=== PATIENT | male | born 1950 | race Caucasian/White ===

== ENCOUNTER 2020-01-01 08:53 | Emergency (ER) | payer OTHER, BC, SELFPAY ==
[~2020-01-01] VITALS: Ht 167.6 cm; Wt 76.7 kg
--- NOTE | 2020-01-01 08:53 | NUR ---
PT WAS SEEN DRIVING UP TO THE ER AND RN IN THE TENT OUTSIDE ASSISTED PT AND BROUGHT HIM IN TO THE TENT TRIAGE. PT IS COUGHING AND ANXIOUS. PT STATED HE HAS HX OF COPD AND CHRONIC BRONCHITIS. PT IS GIVEN O2 AND VS CHECK. RA O2 SAT WAS 88%. NC O2 GIVEN AT 2 L. O2 CAME UP TO 92%. PT IS ALERT AND ORIENTED , BUT OBVIOUSLY ANXIOUS WITH DRY COUGH. PT HAS INHALER WITH HIM. PT HAS HX OF HTN WELL. PT IS THEN BROUGHT TO BED 6 AND PLACED IN GOWN. AWARE.
[2020-01-01 08:56] VITALS: BP_SYST 167
--- NOTE | 2020-01-01 09:00 | NUR ---
PT PLACED IN BED 6, REPORT GIVEN TO JOSE CARLOS.
[2020-01-01] MEDS ORDERED: LEVOFLOXACIN 500 MG/D5W 100 ML IV ONE (09:30)
[2020-01-01] MEDS ORDERED: ALBUTEROL SULFATE 0.083% 2.5 MG/3 ML VIAL.NEB INH ONE ×2 (09:30→11:45)
--- NOTE | 2020-01-01 09:42 | NUR ---
Patient arrived via POV, AAOx4, and ambulatory with steady gait. Patient c/c of cough and shortness of breath x 3-4 days. Patient has history of COPD, chronic bronchitis, and HTN. Patient is 88-91% on room air. Patient is calm and cooperative. Will continue to follow up and monitor.
--- NOTE | 2020-01-01 09:45 | NUR ---
ER at bedside examining patient.
[2020-01-01 10:00] LABS: BASOPHILS # (AUTO) 0.1 K/uL (0.0-0.2); BASOPHILS % (AUTO) 0.7 % (0.0-2.0); EOSINOPHILS # (AUTO) 0.8 K/uL (0.0-0.4); EOSINOPHILS % (AUTO) 10.8 % (0.0-4.0); HEMATOCRIT 50.5 % (36-54); HEMOGLOBIN 16.9 g/dL (14.0-18.0); LYMPHOCYTES # (AUTO) 1.4 K/uL (1.0-5.5); LYMPHOCYTES % (AUTO) 19.5 % (20.5-51.5); MEAN CORPUSCULAR HEMOGLOBIN 33 pg (27-31); MEAN CORPUSCULAR HGB CONC 33 % (32-36); MEAN CORPUSCULAR VOLUME 100 fL (79.0-98.0); MONOCYTES # (AUTO) 0.6 K/uL (0.0-1.0); MONOCYTES % (AUTO) 7.8 % (1.7-9.3); NEUTROPHILS # (AUTO) 4.4 K/uL (1.8-7.7); NEUTROPHILS % (AUTO) 61.2 % (40.0-70.0); PLATELET COUNT (AUTO) 258 K/uL (130-430); RED BLOOD CELL COUNT(AUTO) 5.07 MIL/uL (4.2-6.2); WHITE BLOOD COUNT (AUTO) 7.2 K/uL (4.8-10.8)
[2020-01-01 10:06] LABS: CALCIUM 8.3 mg/dL (8.4-11.0); CREATININE 1.03 mg/dL (0.55-1.30); POTASSIUM 4.3 mmol/L (3.5-5.1)
[2020-01-01 10:07] LABS: PROTHROMBIN TIME 9.9 SECS (9.5-12.5)
[2020-01-01 10:12] LABS: ALBUMIN 3.2 g/dL (3.4-4.8); TOTAL BILIRUBIN 0.4 mg/dL (0.0-1.0)
[2020-01-01 10:40] LABS: BILIRUBIN,URINE NEGATIVE (NEGATIVE); BLOOD, URINE NEGATIVE (NEGATIVE); CLARITY/URINE CLEAR (CLEAR); COLOR,URINE YELLOW (YELLOW); GLUCOSE,URINE NEGATIVE (NEGATIVE); KETONES,URINE NEGATIVE (NEGATIVE); LEUKOCYTE ESTERASE ,URINE NEGATIVE (NEGATIVE); NITRITE, URINE NEGATIVE (NEGATIVE); PH,URINE 6.5 (5.0-8.0); PROTEIN URINE 1+ (NEGATIVE)
[2020-01-01 11:33] LABS: RBC,URINE 0-3 /HPF (0-3)
[2020-01-01 11:34] LABS: BACTERIA,URINE MODERATE /HPF (None Seen)
[2020-01-01 11:35] LABS: MUCUS,URINE 1+ /LPF (None Seen)
[2020-01-01 12:05] VITALS: BP_SYST 121
--- NOTE | 2020-01-01 12:15 | NUR ---
Patient given written and verbal discharge instructions and verbalizes understanding. ER MD discussed with patient the results and treatment provided. Patient in stable condition. ID arm band removed. Rx of Azythromax given. Patient educated on pain management and to follow up with PMD. Pain Scale 2/10 tolerable for patient . Opportunity for questions provided and answered. Medication side effect fact sheet provided.
== END 2020-01-01 12:00 | disposition home or self-care (01) ==
LOC: SED 08:53 → EEVIPCON 08:53 → SED 12:00
DX: J40 Bronchitis, not specified as acute or chronic (principal); J44.9 Chronic obstructive pulmonary disease, unspecified; Z20.828 Contact with and (suspected) exposure to other viral communicable diseases
CPT/HCPCS: 36415; 36600; 71045; 80053; 81000; 82803; 83605; 83880; 84484; 85025; 85610; 86710; 87040; 87086; 93005; 94640; 96365; 99285; J1956; J7613; U0002

== ENCOUNTER 2023-12-16 10:39 | Emergency (ER) | payer OTHER, BC ==
[~2023-12-16] VITALS: Ht 167.6 cm; Wt 68.0 kg
[~2023-12-16 10:39] MED LIST: ALBMDI INH; ASPI-1393 PO; ATOR20TA64 PO; LEVO-62 PO; LOSA25TA18 PO; METH-776 PO; OSEL75CA PO; PARO25TA PO
[2023-12-16 10:45] VITALS: BP_SYST 183; PULSE 86; RESP 25; TEMP 99.1; O2SAT 85
[2023-12-16] MEDS: methylPREDNISolone SOD SUCC/PF 62.5 MG/ML VIAL IVP ONE (10:50)
[2023-12-16] MEDS: hydrALAZINE HCL 20 MG/ML VIAL IVP ONE (10:53)
[2023-12-16 10:57] LABS: BASOPHILS # (AUTO) 0.1 K/uL (0.0-0.2); BASOPHILS % (AUTO) 0.7 % (0.0-2.0); EOSINOPHILS # (AUTO) 0.4 K/uL (0.0-0.4); EOSINOPHILS % (AUTO) 4.3 % (0.0-4.0); HEMATOCRIT 47.5 % (36-54); HEMOGLOBIN 16.4 g/dL (14.0-18.0); LYMPHOCYTES # (AUTO) 2.1 K/uL (1.0-5.5); LYMPHOCYTES % (AUTO) 23.9 % (20.5-51.5); MEAN CORPUSCULAR HEMOGLOBIN 33 pg (27-31); MEAN CORPUSCULAR HGB CONC 35 % (32-36); MEAN CORPUSCULAR VOLUME 94 fL (79.0-98.0); MONOCYTES # (AUTO) 0.7 K/uL (0.0-1.0); MONOCYTES % (AUTO) 8.1 % (1.7-9.3); NEUTROPHILS # (AUTO) 5.6 K/uL (1.8-7.7); PLATELET COUNT (AUTO) 321 K/uL (130-430); RED BLOOD CELL COUNT(AUTO) 5.04 MIL/uL (4.2-6.2); RED CELL DISTRIBUTION WIDTH 14.2 % (9.0-15.0)
[2023-12-16 11:12] LABS: ANION GAP 6 (5-15); CALCIUM 8.6 mg/dL (8.4-11.0); CARBON DIOXIDE 30 mmol/L (23-29); CHLORIDE 106 mmol/L (98-107); CREATININE 1.13 mg/dL (0.55-1.30); GLUCOSE 102 mg/dL (74-106); POTASSIUM 3.9 mmol/L (3.5-5.1); SODIUM SERUM 142 mmol/L (136-145); UREA NITROGEN, BLOOD 17 mg/dL (8-21)
[2023-12-16 11:18] LABS: ALANINE AMINOTRANSFERASE 19 U/L (12-78); ALBUMIN 3.4 g/dL (3.4-4.8); ASPARTATE AMINOTRANSFERASE 19 U/L (10-37); BILIRUBIN,DIRECT 0.1 mg/dL (0.0-0.3); TOTAL BILIRUBIN 0.5 mg/dL (0.0-1.0); TOTAL PROTEIN, SERUM 7.4 g/dL (6.4-8.3)
[2023-12-16] MEDS: IPRATROPIUM/ALBUTEROL SULFATE 3 ML AMPUL.NEB (DUONEB) INH ONE (11:21)
[2023-12-16 11:26] LABS: BLOOD GAS BASE EXCESS -1.2 mmol/L (-3.0-3.0); BLOOD GAS HCO3 23.6 mmol/L (21.0-27.0); BLOOD GAS PCO2 39.9 mmHg (32.0-45.0); BLOOD GAS PH 7.389 (7.350-7.450); BLOOD GAS PO2 82.1 mmHg (75.0-100.0)
[2023-12-16 11:32] LABS: ALLEN'S TEST POSITIVE (P)
[2023-12-16] MEDS ORDERED: PRED50TA PO (12:11)
[2023-12-16 12:20] VITALS: BP_SYST 147; PULSE 89; RESP 19; TEMP 99.1; O2SAT 97
== END 2023-12-16 12:19 | disposition left against medical advice (07) ==
LOC: SED 10:39
DX: J44.1 Chronic obstructive pulmonary disease with (acute) exacerbation (principal); R06.02 Shortness of breath; R05.9 Cough, unspecified; I10 Essential (primary) hypertension; Z79.899 Other long term (current) drug therapy
CPT/HCPCS: 99291; 96374; 96375; 80076; 80048; 83880; 85025; 84484; 36415; 93005; 71045; 94640; 36600; 82803; J0360

== ENCOUNTER 2023-12-19 08:00 | Emergency (ER) | payer OTHER, BC ==
[~2023-12-19] VITALS: Ht 167.6 cm; Wt 70.3 kg
[~2023-12-19 08:00] MED LIST changes: +PRED50TA PO
[2023-12-19 08:08] VITALS: BP_SYST 131; PULSE 92; RESP 22; TEMP 97; O2SAT 94
[2023-12-19 08:26] LABS: BASOPHILS % (AUTO) 0.1 % (0.0-2.0); HEMATOCRIT 45.5 % (36-54); HEMOGLOBIN 15.3 g/dL (14.0-18.0); LYMPHOCYTES # (AUTO) 1.1 K/uL (1.0-5.5); LYMPHOCYTES % (AUTO) 8.7 % (20.5-51.5); MEAN CORPUSCULAR HEMOGLOBIN 32 pg (27-31); MEAN CORPUSCULAR HGB CONC 34 % (32-36); MEAN CORPUSCULAR VOLUME 94 fL (79.0-98.0); MONOCYTES # (AUTO) 0.3 K/uL (0.0-1.0); MONOCYTES % (AUTO) 2.8 % (1.7-9.3); NEUTROPHILS # (AUTO) 10.7 K/uL (1.8-7.7); NEUTROPHILS % (AUTO) 88.4 % (40.0-70.0); PLATELET COUNT (AUTO) 300 K/uL (130-430); RED BLOOD CELL COUNT(AUTO) 4.83 MIL/uL (4.2-6.2); RED CELL DISTRIBUTION WIDTH 14.1 % (9.0-15.0); WHITE BLOOD COUNT (AUTO) 12.1 K/uL (4.8-10.8)
[2023-12-19] MEDS: methylPREDNISolone SOD SUCC/PF 62.5 MG/ML VIAL IVP ONE (08:31)
[2023-12-19 08:38] LABS: ANION GAP 12 (5-15); CALCIUM 8.6 mg/dL (8.4-11.0); CARBON DIOXIDE 25 mmol/L (23-29); CHLORIDE 103 mmol/L (98-107); CREATININE 1.08 mg/dL (0.55-1.30); GLUCOSE 127 mg/dL (74-106); SODIUM SERUM 140 mmol/L (136-145); UREA NITROGEN, BLOOD 19 mg/dL (8-21)
[2023-12-19] MEDS: IPRATROPIUM/ALBUTEROL SULFATE 3 ML AMPUL.NEB (DUONEB) INH ONE (08:39)
[2023-12-19] MEDS ORDERED: PRED20TA PO (09:41)
[2023-12-19 09:50] VITALS: BP_SYST 125; PULSE 94; RESP 18; TEMP 97.9; O2SAT 96
== END 2023-12-19 09:15 | disposition home or self-care (01) ==
LOC: SED 08:00
DX: J44.1 Chronic obstructive pulmonary disease with (acute) exacerbation (principal); F17.210 Nicotine dependence, cigarettes, uncomplicated; I10 Essential (primary) hypertension; Z71.6 Tobacco abuse counseling
CPT/HCPCS: 36415; 71045; 80048; 83880; 84484; 85025; 85610; 85730; 93005; 94640; 94760; 96374; 99285; J2930

== ENCOUNTER 2024-03-03 04:29 | Inpatient (IN) | payer OTHER, BC ==
[2024-03-03] VITALS (9 sets, daily range): BP systolic 140–152; PULSE 74–116; RESP 16–28; TEMP 97.6–97.7; O2SAT 84–99
[~2024-03-03] VITALS: Ht 167.6 cm; Wt 68.6 kg
[~2024-03-03 04:29] MED LIST changes: +PRED20TA PO
[2024-03-03] MEDS ORDERED: ALBUTEROL SULFATE 0.083% 2.5 MG/3 ML VIAL.NEB INH ONE (04:38)
[2024-03-03] MEDS: IPRATROPIUM BROM 0.5 MG/2.5 ML VIAL.NEB (ATROVENT) INH ONE (04:45)
[2024-03-03] MEDS: ALBUTEROL SULFATE 0.083% 2.5 MG/3 ML VIAL.NEB INH ONE (04:45)
[2024-03-03] MEDS: NACL 0.9% 1,000 ML IV ONE (05:27)
[2024-03-03 05:49] LABS: BILIRUBIN,URINE NEGATIVE (NEGATIVE); BLOOD, URINE 1+ (NEGATIVE); COLOR,URINE YELLOW (YELLOW); GLUCOSE,URINE NEGATIVE (NEGATIVE); KETONES,URINE NEGATIVE (NEGATIVE); LEUKOCYTE ESTERASE ,URINE TRACE (NEGATIVE); NITRITE, URINE NEGATIVE (NEGATIVE); PROTEIN URINE 2+ (NEGATIVE); UROBILINOGEN,URINE 0.2 (0.2-1.0)
[2024-03-03] MEDS: methylPREDNISolone SOD SUCC/PF 62.5 MG/ML VIAL IVP ONE (06:00)
[2024-03-03 06:10] LABS: CLARITY/URINE HAZY (CLEAR)
[2024-03-03 06:11] LABS: BACTERIA,URINE None Seen /HPF (None Seen)
[2024-03-03 06:11] LABS: BASOPHILS % (AUTO) 0.3 % (0.0-2.0); EOSINOPHILS # (AUTO) 0.3 K/uL (0.0-0.4); EOSINOPHILS % (AUTO) 2.2 % (0.0-4.0); HEMATOCRIT 41.9 % (36-54); HEMOGLOBIN 14.2 g/dL (14.0-18.0); LYMPHOCYTES # (AUTO) 1.2 K/uL (1.0-5.5); LYMPHOCYTES % (AUTO) 8.3 % (20.5-51.5); MEAN CORPUSCULAR HEMOGLOBIN 32 pg (27-31); MEAN CORPUSCULAR HGB CONC 34 % (32-36); MEAN CORPUSCULAR VOLUME 94 fL (79.0-98.0); MONOCYTES % (AUTO) 7.1 % (1.7-9.3); NEUTROPHILS # (AUTO) 11.6 K/uL (1.8-7.7); NEUTROPHILS % (AUTO) 82.1 % (40.0-70.0); PLATELET COUNT (AUTO) 282 K/uL (130-430); RED BLOOD CELL COUNT(AUTO) 4.43 MIL/uL (4.2-6.2); RED CELL DISTRIBUTION WIDTH 14.8 % (9.0-15.0); WHITE BLOOD COUNT (AUTO) 14.1 K/uL (4.8-10.8)
[2024-03-03 06:43] LABS: ALANINE AMINOTRANSFERASE 30 U/L (12-78); ALBUMIN 2.7 g/dL (3.4-4.8); ANION GAP 7 (5-15); ASPARTATE AMINOTRANSFERASE 31 U/L (10-37); BILIRUBIN,DIRECT 0.1 mg/dL (0.0-0.3); CALCIUM 7.9 mg/dL (8.4-11.0); CARBON DIOXIDE 29 mmol/L (23-29); CHLORIDE 106 mmol/L (98-107); CREATININE 1.01 mg/dL (0.55-1.30); GLUCOSE 131 mg/dL (74-106); POTASSIUM 3.7 mmol/L (3.5-5.1); SODIUM SERUM 142 mmol/L (136-145); TOTAL BILIRUBIN 0.2 mg/dL (0.0-1.0); TOTAL PROTEIN, SERUM 5.9 g/dL (6.4-8.3); UREA NITROGEN, BLOOD 13 mg/dL (8-21)
[2024-03-03] MEDS: METHYLPREDNISOLONE SOD SUCC 40 MG/ML VIAL IVP SCH (08:28)
[2024-03-03] MEDS ORDERED: [UNRECOGNIZED DRUG - REMARK] PO (08:40)
[2024-03-03] MEDS ORDERED: AZITHROMYCIN 500 MG/VIAL (ZITHROMAX) IV ONE (08:56)
[2024-03-03] MEDS: AZITHROMYCIN 500 MG in NS 250 ML IV ONE (09:02)
[2024-03-03] MEDS: NICOTINE 21 MG/24 HR PATCH.TD24 TD SCH (09:02)
[2024-03-03] MEDS: IPRATROPIUM/ALBUTEROL SULFATE 3 ML AMPUL.NEB (DUONEB) INH SCH (11:12)
[2024-03-04] VITALS: BP_SYST 138; PULSE 72; RESP 16; TEMP 97.2; O2SAT 96
[2024-03-04 07:21] VITALS: O2SAT 98
[2024-03-04 08:00] VITALS: BP_SYST 124; PULSE 76; RESP 18; TEMP 97.4; O2SAT 93
[2024-03-04] MEDS: AZITHROMYCIN 500 MG in NS 250 ML IV SCH (09:47)
[2024-03-04 12:21] VITALS: BP_SYST 129; PULSE 75; RESP 18; TEMP 97.8; O2SAT 95
[2024-03-04 15:47] VITALS: BP_SYST 124; PULSE 76; RESP 18; TEMP 97.4; O2SAT 94
[2024-03-04] MEDS ORDERED: AZIT500T PO (18:37)
[2024-03-04] MEDS ORDERED: METH-776 PO (18:37)
== END 2024-03-04 17:40 | disposition home or self-care (01) | DRG 189 ==
LOC: SED 04:29 → STU 07:35 → SMU 03-04 16:39
PROVIDERS: ADMIT Preventive Medicine Preventive Medicine/Occupational Environmental Medicine; ATTEND Preventive Medicine Preventive Medicine/Occupational Environmental Medicine
DX: J96.01 Acute respiratory failure with hypoxia (principal); E43 Unspecified severe protein-calorie malnutrition; J44.1 Chronic obstructive pulmonary disease with (acute) exacerbation; I10 Essential (primary) hypertension; R73.9 Hyperglycemia, unspecified; D72.829 Elevated white blood cell count, unspecified; E83.51 Hypocalcemia; E88.09 Other disorders of plasma-protein metabolism, not elsewhere classified; Z68.24 Body mass index [BMI] 24.0-24.9, adult; Z79.899 Other long term (current) drug therapy; Z72.0 Tobacco use
CPT/HCPCS: 36600; 71045; 80048; 80076; 81000; 81001; 81015; 82803; 84484; 85025; 87086; 93005; 94070; 94640; 94760; 99285; G0378; J0456; J1030; J2930; J7050

== ENCOUNTER 2024-07-08 01:25 | Inpatient (IN) | payer OTHER, BC ==
[~2024-07-08] VITALS: Ht 167.6 cm; Wt 63.0 kg
[2024-07-08] VITALS (8 sets, daily range): BP systolic 99–125; PULSE 55–87; RESP 15–24; TEMP 97.9–98.1; O2SAT 93–100
[~2024-07-08 01:25] MED LIST changes: +AZIT500T PO; -LEVO-62 PO; -PRED20TA PO; -PRED50TA PO; +[UNRECOGNIZED DRUG - REMARK] PO
[2024-07-08] MEDS: methylPREDNISolone SOD SUCC/PF 62.5 MG/ML VIAL IVP ONE (01:56)
[2024-07-08] MEDS: MAGNESIUM SULFATE 50 ML IV ONE (01:56)
[2024-07-08 02:25] LABS: BLOOD GAS PH 7.376 (7.350-7.450)
[2024-07-08 02:26] LABS: ABG O2 SAT% ESTIMATE 93.5 % (94.0-98.0); ALLEN'S TEST POSITIVE (P); BLOOD GAS BASE EXCESS 3.2 mmol/L (-2.0-3.0); BLOOD GAS HCO3 29.5 mmol/L (21.0-28.0); BLOOD GAS PCO2 51.4 mmHg (35.0-48.0); BLOOD GAS PO2 70.1 mmHg (83.0-108.0)
[2024-07-08 02:27] LABS: FRACTIONATED INSPIRED OXYGEN 0.28 % (0.21-100.00)
[2024-07-08 02:45] LABS: BASOPHILS # (AUTO) 0.1 K/uL (0.0-0.2); BASOPHILS % (AUTO) 0.7 % (0.0-2.0); EOSINOPHILS # (AUTO) 0.2 K/uL (0.0-0.4); EOSINOPHILS % (AUTO) 1.6 % (0.0-4.0); HEMATOCRIT 43.2 % (36-54); HEMOGLOBIN 14.5 g/dL (14.0-18.0); LYMPHOCYTES # (AUTO) 2.4 K/uL (1.0-5.5); MEAN CORPUSCULAR HEMOGLOBIN 33 pg (27-31); MEAN CORPUSCULAR HGB CONC 34 % (32-36); MEAN CORPUSCULAR VOLUME 97 fL (79.0-98.0); MONOCYTES # (AUTO) 1.4 K/uL (0.0-1.0); MONOCYTES % (AUTO) 12.5 % (1.7-9.3); NEUTROPHILS # (AUTO) 7.4 K/uL (1.8-7.7); NEUTROPHILS % (AUTO) 64.2 % (40.0-70.0); PLATELET COUNT (AUTO) 306 K/uL (130-430); RED BLOOD CELL COUNT(AUTO) 4.46 MIL/uL (4.2-6.2); RED CELL DISTRIBUTION WIDTH 13.9 % (9.0-15.0); WHITE BLOOD COUNT (AUTO) 11.6 K/uL (4.8-10.8)
[2024-07-08 02:51] LABS: ALANINE AMINOTRANSFERASE 17 U/L (12-78); ALBUMIN 3.4 g/dL (3.4-4.8); ANION GAP 12 (5-15); ASPARTATE AMINOTRANSFERASE 24 U/L (10-37); BILIRUBIN,DIRECT 0.1 mg/dL (0.0-0.3); CALCIUM 8.9 mg/dL (8.4-11.0); CARBON DIOXIDE 29 mmol/L (23-29); CHLORIDE 103 mmol/L (98-107); CREATININE 1.16 mg/dL (0.55-1.30); GLUCOSE 104 mg/dL (74-106); POTASSIUM 3.4 mmol/L (3.5-5.1); SODIUM SERUM 144 mmol/L (136-145); TOTAL BILIRUBIN 0.4 mg/dL (0.0-1.0); TOTAL PROTEIN, SERUM 7.2 g/dL (6.4-8.3); UREA NITROGEN, BLOOD 10 mg/dL (8-21)
[2024-07-08] MEDS: cefTRIAXone 1 GM IVPB PREMIX 50 ML IV ONE ×2 (03:00→06:41)
[2024-07-08] MEDS: AZITHROMYCIN 500 MG in NS 250 ML IV ONE ×2 (03:00→07:00)
[2024-07-08] MEDS: IPRATROPIUM/ALBUTEROL SULFATE 3 ML AMPUL.NEB (DUONEB) INH ONE (06:01)
[2024-07-08] MEDS ORDERED: AZITHROMYCIN 500 MG/VIAL (ZITHROMAX) IV ONE (06:36)
[2024-07-08] MEDS ORDERED: ALBUTEROL (07:47)
[2024-07-08] MEDS ORDERED: FLUT250B PO (07:47)
[2024-07-08] MEDS: METHYLPREDNISOLONE SOD SUCC 40 MG/ML VIAL IVP SCH ×2 (08:47→22:19)
[2024-07-08 09:17] LABS: INFLUENZA TYPE A Negative (NEGATIVE); INFLUENZA TYPE B NEGATIVE (NEGATIVE)
[2024-07-08 09:21] LABS: COVID19 ANTIGEN SOFIA FIA NEGATIVE (NEGATIVE)
[2024-07-08] MEDS ORDERED: OSELTAMIVIR PHOSPHATE 75 MG CAPSULE PO SCH (11:30)
[2024-07-08] MEDS ORDERED: ALBUTEROL MDI INHALATION 8 GM INH INH PRN (11:30)
[2024-07-08] MEDS: IPRATROPIUM/ALBUTEROL SULFATE 3 ML AMPUL.NEB (DUONEB) INH PRN (14:10)
[2024-07-08] MEDS ORDERED: ALBUTEROL SULFATE 0.083% 2.5 MG/3 ML VIAL.NEB INH PRN (15:45)
[2024-07-08] MEDS: ATORVASTATIN 20 MG TABLET PO SCH (22:16)
[2024-07-08] MEDS: AMPICILLIN SODIUM/SULBACTAM NA 1.5 GM in NS 50 ML IV SCH (22:19)
[2024-07-08] MEDS: HEPARIN SODIUM,PORCINE 5,000 UNITS/ML VIAL SUBCUT SCH (22:22)
[2024-07-08 23:49] LABS: PROTHROMBIN TIME 10.2 SECS (9.5-12.5)
[2024-07-09 06:53] LABS: BASOPHILS % (AUTO) 0.1 % (0.0-2.0); HEMATOCRIT 39.3 % (36-54); HEMOGLOBIN 12.9 g/dL (14.0-18.0); LYMPHOCYTES # (AUTO) 0.6 K/uL (1.0-5.5); LYMPHOCYTES % (AUTO) 3.5 % (20.5-51.5); MEAN CORPUSCULAR HEMOGLOBIN 32 pg (27-31); MEAN CORPUSCULAR HGB CONC 33 % (32-36); MEAN CORPUSCULAR VOLUME 97 fL (79.0-98.0); MONOCYTES # (AUTO) 0.4 K/uL (0.0-1.0); MONOCYTES % (AUTO) 2.6 % (1.7-9.3); NEUTROPHILS # (AUTO) 15.4 K/uL (1.8-7.7); NEUTROPHILS % (AUTO) 93.8 % (40.0-70.0); PLATELET COUNT (AUTO) 296 K/uL (130-430); RED BLOOD CELL COUNT(AUTO) 4.06 MIL/uL (4.2-6.2); WHITE BLOOD COUNT (AUTO) 16.4 K/uL (4.8-10.8)
[2024-07-09 07:14] LABS: ALANINE AMINOTRANSFERASE 14 U/L (12-78); ALBUMIN 2.6 g/dL (3.4-4.8); ANION GAP 7 (5-15); ASPARTATE AMINOTRANSFERASE 18 U/L (10-37); CALCIUM 8.2 mg/dL (8.4-11.0); CARBON DIOXIDE 29 mmol/L (23-29); CHLORIDE 105 mmol/L (98-107); CREATININE 0.82 mg/dL (0.55-1.30); GLUCOSE 133 mg/dL (74-106); POTASSIUM 4.6 mmol/L (3.5-5.1); SODIUM SERUM 141 mmol/L (136-145); TOTAL BILIRUBIN 0.2 mg/dL (0.0-1.0); UREA NITROGEN, BLOOD 16 mg/dL (8-21)
[2024-07-09 07:53] VITALS: BP_SYST 124; PULSE 86; RESP 16; TEMP 98.6; O2SAT 95
[2024-07-09] MEDS ORDERED: AZITHROMYCIN 250 MG TABLET PO SCH (09:00)
[2024-07-09] MEDS: LOSARTAN POTASSIUM 25 MG TABLET PO SCH (09:16)
[2024-07-09] MEDS: ASPIRIN 81 MG TABLET(ECOTRIN) PO SCH (09:16)
[2024-07-09] MEDS: PARoxetine HCL 10 MG TABLET PO SCH (09:17)
[2024-07-09] MEDS: NICOTINE 21 MG/24 HR PATCH.TD24 TD SCH (09:18)
[2024-07-09 09:50] VITALS: O2SAT 95
[2024-07-09 10:30] VITALS: O2SAT 98
[2024-07-09 12:00] VITALS: BP_SYST 124; PULSE 66; RESP 20; TEMP 98.2; O2SAT 95
[2024-07-09 16:38] VITALS: BP_SYST 112; PULSE 93; RESP 18; TEMP 98.5; O2SAT 93
[2024-07-09 20:00] VITALS: BP_SYST 106; PULSE 87; RESP 18; TEMP 98.7; O2SAT 94; O2SAT 95
[2024-07-10 00:26] VITALS: BP_SYST 107; PULSE 71; RESP 16; TEMP 97.3; O2SAT 92
[2024-07-10 08:09] VITALS: BP_SYST 139; PULSE 80; RESP 18; TEMP 98.8; O2SAT 92
[2024-07-10 08:30] VITALS: O2SAT 92
[2024-07-10 08:41] LABS: BASOPHILS % (AUTO) 0.2 % (0.0-2.0); HEMATOCRIT 43.7 % (36-54); HEMOGLOBIN 14.4 g/dL (14.0-18.0); LYMPHOCYTES # (AUTO) 0.8 K/uL (1.0-5.5); LYMPHOCYTES % (AUTO) 5.2 % (20.5-51.5); MEAN CORPUSCULAR HEMOGLOBIN 32 pg (27-31); MEAN CORPUSCULAR HGB CONC 33 % (32-36); MEAN CORPUSCULAR VOLUME 97 fL (79.0-98.0); MONOCYTES # (AUTO) 0.4 K/uL (0.0-1.0); MONOCYTES % (AUTO) 2.5 % (1.7-9.3); NEUTROPHILS # (AUTO) 14.5 K/uL (1.8-7.7); NEUTROPHILS % (AUTO) 92.1 % (40.0-70.0); PLATELET COUNT (AUTO) 359 K/uL (130-430); RED BLOOD CELL COUNT(AUTO) 4.53 MIL/uL (4.2-6.2); WHITE BLOOD COUNT (AUTO) 15.8 K/uL (4.8-10.8)
[2024-07-10 08:58] LABS: ALANINE AMINOTRANSFERASE 18 U/L (12-78); ALBUMIN 3.1 g/dL (3.4-4.8); ANION GAP 8 (5-15); ASPARTATE AMINOTRANSFERASE 20 U/L (10-37); CALCIUM 8.5 mg/dL (8.4-11.0); CARBON DIOXIDE 30 mmol/L (23-29); CHLORIDE 103 mmol/L (98-107); CREATININE 0.92 mg/dL (0.55-1.30); GLUCOSE 118 mg/dL (74-106); POTASSIUM 4.1 mmol/L (3.5-5.1); SODIUM SERUM 141 mmol/L (136-145); TOTAL BILIRUBIN 0.2 mg/dL (0.0-1.0); TOTAL PROTEIN, SERUM 6.9 g/dL (6.4-8.3); UREA NITROGEN, BLOOD 21 mg/dL (8-21)
[2024-07-10 10:41] LABS: BILIRUBIN,URINE NEGATIVE (NEGATIVE); BLOOD, URINE NEGATIVE (NEGATIVE); CLARITY/URINE CLEAR (CLEAR); COLOR,URINE YELLOW (YELLOW); GLUCOSE,URINE NEGATIVE (NEGATIVE); KETONES,URINE NEGATIVE (NEGATIVE); LEUKOCYTE ESTERASE ,URINE NEGATIVE (NEGATIVE); NITRITE, URINE NEGATIVE (NEGATIVE); PH,URINE 6.5 (5.0-8.0); PROTEIN URINE NEGATIVE (NEGATIVE); UROBILINOGEN,URINE 0.2 (0.2-1.0)
[2024-07-10] MEDS ORDERED: NICO-736 TP (11:30)
[2024-07-10] MEDS ORDERED: TIOT4MIS2 IH (11:30)
[2024-07-10] MEDS ORDERED: WELSR150 PO (11:30)
[2024-07-10] MEDS ORDERED: NICO-680 TP (11:30)
[2024-07-10] MEDS ORDERED: AMOX-423 PO (11:30)
[2024-07-10 11:51] VITALS: BP_SYST 150; PULSE 82; RESP 20; TEMP 97.3; O2SAT 91; O2SAT 93
[2024-07-10 12:26] VITALS: BP_SYST 147; PULSE 81; RESP 18; TEMP 98.9; O2SAT 97
[2024-07-10] MEDS ORDERED: OSEL75CA PO (13:58)
[2024-07-10] MEDS ORDERED: METH-776 PO (13:58)
== END 2024-07-10 14:55 | disposition home or self-care (01) | DRG 871 ==
LOC: SED 01:25 → STU 05:54
PROVIDERS: ADMIT Student in an Organized Health Care Education/Training Program; ATTEND Student in an Organized Health Care Education/Training Program
DX: A41.9 Sepsis, unspecified organism (principal); I50.43 Acute on chronic combined systolic (congestive) and diastolic (congestive) heart failure; J18.9 Pneumonia, unspecified organism; J96.21 Acute and chronic respiratory failure with hypoxia; J44.0 Chronic obstructive pulmonary disease with (acute) lower respiratory infection; J44.1 Chronic obstructive pulmonary disease with (acute) exacerbation; E87.6 Hypokalemia; I11.0 Hypertensive heart disease with heart failure; E78.5 Hyperlipidemia, unspecified; Z20.822 Contact with and (suspected) exposure to COVID-19; F41.9 Anxiety disorder, unspecified; Z79.899 Other long term (current) drug therapy; Z88.8 Allergy status to other drugs, medicaments and biological substances
CPT/HCPCS: 36415; 36600; 71045; 71250-TC; 80048; 80053; 80076; 81001; 81003; 82803; 83605; 83880; 85025; 85379; 85610; 85730; 87040; 87070; 87081; 87205; 93005; 94640; 94760; 97112-GP; 97116-GP; 99285; G0378; J0295; J0456; J0696; J1030; J1644; J2930; J3475; J7050